=== PATIENT | female | born 1995 | race Caucasian/White ===

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

== ENCOUNTER 2018-04-08 18:45 | Emergency (ER) | payer OTHER ==
[~2018-04-08] VITALS: Ht 165.1 cm; Wt 117.9 kg
[~2018-04-08 18:45] MED LIST: NAPROSYN500 MG PO; TRAMADOL 50 MG50 MG PO; ZOFRAN ODT8 MG PO
[2018-04-08] MEDS ORDERED: NORCO 5-325 TA1 EACH PO (18:52)
[2018-04-08 19:22] LABS: ABSOLUTE NEUTROPHILS 6.9 thou/uL (1.4-8.2); BASOPHILS 0.4 % (0.0-2.0); EOSINOPHILS 0.3 % (0.0-3.0); HEMATOCRIT 38.9 % (37.0-47.0); LYMPHOCYTES 16.2 % (24.0-44.0); MCHC 33.4 g/dL (28.0-37.0); MCV 89.7 fL (80.0-100.0); MONOCYTES 10.3 % (1.0-8.0); PLATELET COUNT 476 thou/uL (150-400); POLYS 72.8 % (36.0-66.0); RBC 4.33 mil/uL (4.20-5.00); RDW 15.6 % (10.5-14.5); WBC 9.5 thou/uL (4.0-11.0)
[2018-04-08 19:28] LABS: URINE BILIRUBIN NEGATIVE (Negative); URINE BLOOD NEGATIVE (Negative); URINE CLARITY CLEAR; URINE COLOR YELLOW; URINE GLUCOSE-RANDOM* NEGATIVE (Negative); URINE KETONES NEGATIVE (Negative); URINE LEUKOCYTES-REFLEX NEGATIVE (Negative); URINE NITRITE-REFLEX NEGATIVE (Negative); URINE PROTEIN (DIPSTICK) NEGATIVE (Negative); URINE SPECIFIC GRAVITY > 1.030 (1.005-1.035); URINE UROBILINOGEN 0.2 E.U./dl (0.2-1.0)
[2018-04-08 20:00] LABS: ALBUMIN 3.5 g/dL (3.4-5.0); CREATININE 0.9 mg/dL (0.6-1.0); TOTAL BILIRUBIN 0.1 mg/dL (<0.1-1.0); TOTAL PROTEIN 7.6 g/dL (6.4-8.2)
[2018-04-08] MEDS ORDERED: CARAFATE 1 GM TA1 G1 PO (21:05)
[2018-04-08] MEDS ORDERED: ONDANSETRON HCL4 M2 PO (21:05)
[2018-04-08 22:07] VITALS: BP 129/62
== END 2018-04-08 22:08 | disposition home or self-care (01) ==
LOC: ER 18:45
PROVIDERS: Nurse Practitioner Family
DX: R10.12 Left upper quadrant pain (principal); G89.18 Other acute postprocedural pain; R10.13 Epigastric pain; E86.0 Dehydration; F17.210 Nicotine dependence, cigarettes, uncomplicated; Z90.49 Acquired absence of other specified parts of digestive tract